=== PATIENT | female | born 1945 | race Caucasian/White ===

== ENCOUNTER 2018-08-31 20:06 | Emergency (ER) | payer MEDICARE, BC ==
[~2018-08-31] VITALS: Ht 170.2 cm; Wt 68.0 kg
[2018-08-31] MEDS ORDERED: LOSA50TA3 PO (20:20)
[2018-08-31] MEDS ORDERED: ACYC-202 PO (20:22)
[2018-08-31] MEDS ORDERED: SUMA50TA PO (20:22)
[2018-08-31] MEDS ORDERED: ESTR0.9T2 PO (20:22)
[2018-08-31 21:11] VITALS: BP 168/102
== END 2018-08-31 21:27 | disposition home or self-care (01) ==
LOC: ER 20:07
DX: S50.12XA Contusion of left forearm, initial encounter (principal); S50.11XA Contusion of right forearm, initial encounter; R04.0 Epistaxis; I10 Essential (primary) hypertension; Z88.8 Allergy status to other drugs, medicaments and biological substances; Z79.899 Other long term (current) drug therapy; X58.XXXA Exposure to other specified factors, initial encounter; Y93.89 Activity, other specified; Y92.89 Other specified places as the place of occurrence of the external cause; Y99.8 Other external cause status
CPT/HCPCS: 99281

== ENCOUNTER 2019-12-04 13:31 | Emergency (ER) | payer MEDICARE, BC ==
[~2019-12-04] VITALS: Ht 170.2 cm; Wt 60.0 kg
[~2019-12-04 13:31] MED LIST: ACYC-202 PO; ESTR0.9T2 PO; LOSA50TA3 PO; SUMA50TA PO
[2019-12-04] MEDS ORDERED: HYDR25TA4 PO (14:13)
[2019-12-04] MEDS ORDERED: HYDROchlorothiazide 25mg tablet PO ONE (14:35)
[2019-12-04 14:47] VITALS: BP 157/73
[2019-12-04 15:03] LABS: BASOPHILS % (AUTO) 0.7 % (0-1); EOSINOPHILS # (AUTO) 0.1 X10'3 (0-0.9); EOSINOPHILS % (AUTO) 1.2 % (0-6); HEMATOCRIT 37.5 % (35.0-45.0); HEMOGLOBIN 12.7 g/dl (12.0-16.0); LYMPHOCYTES # (AUTO) 1.3 X10'3 (1.1-4.8); LYMPHOCYTES % (AUTO) 23.5 % (21-51); MEAN CORPUSCULAR HEMOGLOBIN 32.7 PG (27.0-31.0); MEAN CORPUSCULAR HGB CONC 33.9 g/dL (33.0-36.5); MEAN CORPUSCULAR VOLUME 96.5 FL (78-98); MEAN PLATELET VOLUME 7.9 FL (7.4-10.4); MONOCYTES # (AUTO) 0.4 X10'3 (0-0.9); MONOCYTES % (AUTO) 7.9 % (2-12); NEUTROPHILS # (AUTO) 3.6 X10'3 (1.8-7.7); NEUTROPHILS % (AUTO) 66.7 % (42-75); PLATELET COUNT 257 X10'3 (140-440); RED BLOOD COUNT 3.89 X10'6 (4.20-5.60); RED CELL DISTRIBUTION WIDTH 13.6 % (11.5-14.5); WHITE BLOOD COUNT 5.4 X10'3 (4.5-11.0)
[2019-12-04 15:11] LABS: ALBUMIN 3.5 G/DL (3.4-5.0); ANION GAP 6 (8-16); BLOOD UREA NITROGEN 10 MG/DL (7-18); BUN/CREATININE RATIO 11.5 (6.6-38.0); CALCIUM 8.6 MG/DL (8.5-10.1); CHLORIDE 107 MMOL/L (99-107); CREATININE 0.87 MG/DL (0.40-0.90); GLUCOSE 93 MG/DL (70-104); MAGNESIUM 1.9 MG/DL (1.5-2.4); POTASSIUM 4.5 MMOL/L (3.5-5.1); SODIUM 142 MMOL/L (135-145); TOTAL CARBON DIOXIDE 29.2 MMOL/L (24-32); eGFR 64 ML/MIN
== END 2019-12-04 15:03 | disposition home or self-care (01) ==
LOC: ER 13:31
DX: I10 Essential (primary) hypertension (principal); Z88.8 Allergy status to other drugs, medicaments and biological substances; Z79.899 Other long term (current) drug therapy
CPT/HCPCS: 36415; 80048; 83735; 85025; 93005; 99284

== ENCOUNTER 2023-08-13 05:15 | Emergency (ER) | payer MEDICARE ==
[~2023-08-13] VITALS: Ht 170.2 cm; Wt 63.6 kg
[~2023-08-13 05:15] MED LIST changes: +ACYC-129 PO; -ACYC-202 PO; +HYDR25TA4 PO; +LOSA-416 PO; -LOSA50TA3 PO
[2023-08-13 05:47] LABS: BASOPHILS % (AUTO) 0.4 % (0-1); EOSINOPHILS # (AUTO) 0.1 X10'3 (0-0.9); EOSINOPHILS % (AUTO) 0.8 % (0-6); HEMATOCRIT 41.1 % (35.0-45.0); HEMOGLOBIN 13.7 g/dl (12.0-16.0); LYMPHOCYTES # (AUTO) 1.5 X10'3 (1.1-4.8); LYMPHOCYTES % (AUTO) 17.5 % (21-51); MEAN CORPUSCULAR HEMOGLOBIN 32.5 PG (27.0-31.0); MEAN CORPUSCULAR HGB CONC 33.4 g/dL (33.0-36.5); MEAN CORPUSCULAR VOLUME 97.3 FL (78-98); MEAN PLATELET VOLUME 7.9 FL (7.4-10.4); MONOCYTES % (AUTO) 11.1 % (2-12); NEUTROPHILS # (AUTO) 6.1 X10'3 (1.8-7.7); NEUTROPHILS % (AUTO) 70.2 % (42-75); PLATELET COUNT 244 X10'3 (140-440); RED BLOOD COUNT 4.22 X10'6 (4.20-5.60); RED CELL DISTRIBUTION WIDTH 13.8 % (11.5-14.5); WHITE BLOOD COUNT 8.7 X10'3 (4.5-11.0)
[2023-08-13 06:20] LABS: ALANINE AMINOTRANSFERASE 14 U/L (12-78); ALBUMIN 3.3 G/DL (3.4-5.0); ALBUMIN/GLOBULIN RATIO 0.9 (1.1-1.5); ALKALINE PHOSPHATASE 63 IU/L (46-116); ANION GAP 8 (8-16); ASPARTATE AMINO TRANSFERASE 21 U/L (10-37); BILIRUBIN,TOTAL 0.6 MG/DL (0.1-1.0); BLOOD UREA NITROGEN 16 MG/DL (7-18); BUN/CREATININE RATIO 17.2 (10.0-20.0); CALCIUM 9.3 MG/DL (8.5-10.1); CHLORIDE 103 MMOL/L (99-107); CREATININE 0.93 MG/DL (0.40-0.90); GLUCOSE 109 MG/DL (70-104); POTASSIUM 3.9 MMOL/L (3.5-5.1); SODIUM 136 MMOL/L (135-145); TOTAL CARBON DIOXIDE 25.3 MMOL/L (24-32); eCRCL 50 ML/MIN; eGFR 59 ML/MIN
[2023-08-13 06:28] LABS: PRO BRAIN NATRIURETIC PEPTIDE 1047 PG/ML (0-450)
[2023-08-13] MEDS ORDERED: acetaminophen 325mg tablet PO ONE (06:35)
[2023-08-13] MEDS ORDERED: ringers solution, lacted 1,000 ML IV ONE (08:00)
[2023-08-13 08:53] LABS: D-DIMER 0.47 MG/L FEU (0-0.50)
[2023-08-13] MEDS ORDERED: ketorolac trometh. 30mg/ml inj. IV ONE (10:05)
[2023-08-13] MEDS ORDERED: ketorolac trometh inj. 60 MG/2 ML VIAL IM ONE (10:25)
[2023-08-13 10:36] VITALS: BP 149/72; PULSE 69; RESP 20; TEMP 98.7; O2SAT 98
== END 2023-08-13 10:42 | disposition home or self-care (01) ==
LOC: ER 05:15
DX: M94.0 Chondrocostal junction syndrome [Tietze] (principal); R07.9 Chest pain, unspecified; I10 Essential (primary) hypertension
CPT/HCPCS: 36415; 71045; 80053; 83880; 84484; 85025; 85379; 93005; 96360; 96361; 96372; 99285; J1885; J7120

== ENCOUNTER 2023-12-17 12:43 | Day surgery (SDC) | payer MEDICARE ==
[2023-12-13 15:34] LABS: ANION GAP 9 (8-16); BASOPHILS # (AUTO) 0.1 X10'3 (0-0.2); BASOPHILS % (AUTO) 0.9 % (0-1); BLOOD UREA NITROGEN 27 MG/DL (7-18); BUN/CREATININE RATIO 22.3 (10.0-20.0); CALCIUM 8.9 MG/DL (8.5-10.1); CHLORIDE 104 MMOL/L (99-107); CREATININE 1.21 MG/DL (0.40-0.90); EOSINOPHILS # (AUTO) 0.2 X10'3 (0-0.9); EOSINOPHILS % (AUTO) 2.5 % (0-6); GLUCOSE 79 MG/DL (70-104); HEMATOCRIT 36.9 % (35.0-45.0); HEMOGLOBIN 12.2 g/dl (12.0-16.0); LYMPHOCYTES % (AUTO) 14.4 % (21-51); MEAN CORPUSCULAR HGB CONC 33.1 g/dL (33.0-36.5); MEAN CORPUSCULAR VOLUME 96.6 FL (78-98); MEAN PLATELET VOLUME 7.7 FL (7.4-10.4); MONOCYTES # (AUTO) 0.5 X10'3 (0-0.9); MONOCYTES % (AUTO) 6.6 % (2-12); NEUTROPHILS # (AUTO) 5.1 X10'3 (1.8-7.7); NEUTROPHILS % (AUTO) 75.6 % (42-75); PLATELET COUNT 403 X10'3 (140-440); RED BLOOD COUNT 3.82 X10'6 (4.20-5.60); RED CELL DISTRIBUTION WIDTH 13.8 % (11.5-14.5); SODIUM 140 MMOL/L (135-145); TOTAL CARBON DIOXIDE 26.8 MMOL/L (24-32); WHITE BLOOD COUNT 6.8 X10'3 (4.5-11.0); eGFR 43 ML/MIN
[2023-12-13 15:39] LABS: APTT 32 SECONDS (22-32); PROTHROMBIN TIME 10.9 SECONDS (9.0-12.0)
[~2023-12-17] VITALS: Ht 170.2 cm; Wt 63.9 kg
[2023-12-17] VITALS (15 sets, daily range): BP systolic 78–133; BP diastolic 23–82; PULSE 57–118; RESP 12–25; TEMP 98.2; O2SAT 94–100
[2023-12-17] MEDS ORDERED: normal saline 1000ml 1,000 ML IV SCH (13:05)
[2023-12-17] MEDS ORDERED: fentaNYL/PF 50MCG/1 ML 2ML syringe IV ONE (13:05)
[2023-12-17] MEDS ORDERED: MIDAZolam 1mg/ml 10ml vial IV ONE (13:05)
[2023-12-17 14:42] LABS: HDL CHOLESTEROL 128 MG/DL (35-60); LDL CHOLESTEROL 84 MG/DL (50-100); TRIGLYCERIDES 83 MG/DL (20-135)
[2023-12-17 14:55] LABS: CHOL/HDL RATIO 1.9 (0.00-4.99); CHOLESTEROL 249 MG/DL (0-200)
[2023-12-17] MEDS ORDERED: AMLO-379 PO (15:50)
[2023-12-17] MEDS ORDERED: ELUX100T PO (15:50)
[2023-12-17] MEDS ORDERED: NAPR220T67 PO (15:50)
[2023-12-17] MEDS ORDERED: AMI200T PO (15:50)
[2023-12-17] MEDS ORDERED: APIX5TAB3 PO (15:50)
== END 2023-12-17 16:45 | disposition home or self-care (01) ==
LOC: SSTAY O 12:43
PROVIDERS: ATTEND Student in an Organized Health Care Education/Training Program
DX: I48.91 Unspecified atrial fibrillation (principal); I10 Essential (primary) hypertension; E78.00 Pure hypercholesterolemia, unspecified; I48.92 Unspecified atrial flutter; I20.0 Unstable angina; G43.909 Migraine, unspecified, not intractable, without status migrainosus; I36.1 Nonrheumatic tricuspid (valve) insufficiency; I25.2 Old myocardial infarction; Z79.01 Long term (current) use of anticoagulants; Z79.899 Other long term (current) drug therapy; Z88.8 Allergy status to other drugs, medicaments and biological substances
CPT/HCPCS: 36415; 80048; 80061; 85025; 85610; 85730; 92960; 93005; J7030; A4620